=== PATIENT | male | born 1975 | race Caucasian/White ===

== ENCOUNTER 2023-02-04 11:47 | Emergency (ER) | payer OTHER ==
[2023-02-04 13:02] LABS: BASOPHILS PERCENT AUTO 0.4 % (0.0-1.0); EOSINOPHILS ABSOLUTE AUTO 0.1 K/mm3 (0.0-0.4); EOSINOPHILS PERCENT AUTO 1.7 % (0.0-6.0); HEMATOCRIT 41.9 % (42.0-52.0); HEMOGLOBIN 15.7 gm/dl (14.0-18.0); IMMATURE GRAN ABSOLUTE AUTO 0.03 K/mm3 (0.00-0.05); IMMATURE GRAN PERCENT AUTO 0.4 % (0.0-0.4); LYMPHOCYTES ABSOLUTE AUTO 1.9 K/mm3 (1.0-4.8); MEAN CORPUSCULAR HEMOGLOBIN 31.8 pg (28.0-32.0); MEAN CORPUSCULAR HGB CONC 37.5 g/dl (32.0-36.0); MEAN CORPUSCULAR VOLUME 84.8 fl (83.0-99.0); MEAN PLATELET VOLUME 10.9 fl (9.4-12.4); MONOCYTES ABSOLUTE AUTO 0.5 K/mm3 (0.0-0.8); MONOCYTES PERCENT AUTO 6.8 % (0.0-8.0); NEUTROPHILS ABSOLUTE AUTO 4.6 K/mm3 (1.8-7.7); NEUTROPHILS PERCENT AUTO 63.7 % (41.0-71.0); PLATELET COUNT,PLT 289 K/mm3 (150-400); RED BLOOD CELL COUNT 4.94 M/mm3 (4.52-5.90); WHITE BLOOD CELL COUNT,WBC 7.19 K/mm3 (3.9-11.3)
[2023-02-04 13:09] LABS: A/G RATIO 0.9 (1-2); ALBUMIN 3.7 g/dl (3.4-5.0); ALKALINE PHOSPHATASE 104 U/L (46-116); AMYLASE 21 U/L (25-115); ANION GAP 21.4 (5-15); BILIRUBIN TOTAL 1.4 mg/dL (0.2-1.0); BLOOD UREA NITROGEN,BUN 10 mg/dL (7-18); BUN/CREATININE RATIO 9.1 (14-18); CALCIUM 8.2 mg/dL (8.5-10.1); CARBON DIOXIDE,CO2 19 mEq/L (21-32); CHLORIDE,CL 95 mEq/L (98-107); CREATINE KINASE,CK 294 U/L (39-308); EST CRCL DRUG DOSING (CG) 87.47 mL/min; ESTIMATED GFR 83 mL/min (>60); GLUCOSE RANDOM 398 mg/dL (70-99); LIPASE 30 U/L (16-77); MAGNESIUM 1.3 mg/dL (1.8-2.4); POTASSIUM,K 4.4 mEq/L (3.5-5.1); SODIUM,NA 131 mEq/L (136-145)
[2023-02-04 13:24] LABS: BASE EXCESS VENOUS -2.5 (-4.0-2.0); BICARBONATE,VENOUS 21.4 meq/L (22-26); O2 SATURATION VENOUS 99; PCO2 VENOUS 36.3 mmHg (41-51); PH,VENOUS 7.39 (7.30-7.40)
[2023-02-04] MEDS ORDERED: Insulin Lispro 100 Unit/ML 3 ML KwikPen SUBCUT ONE (13:56)
[2023-02-04] MEDS ORDERED: 50% Dextrose in Water 50 ML Syringe IVPUSH PRN (13:56)
[2023-02-04] MEDS ORDERED: Sodium Chloride 0.9% 1,000 ML IV ONE (14:15)
[2023-02-04 15:01] LABS: APPEARANCE,URINE CLEAR (Clear); BILIRUBIN,URINE NEGATIVE (Negative); COLOR,URINE YELLOW (Yellow); GLUCOSE,URINE 2+ (Negative); KETONES,URINE TRACE (Negative); LEUKOCYTE ESTERASE,URINE NEGATIVE (Negative); NITRITE,URINE NEGATIVE (Negative); OCCULT BLOOD,URINE 1+ (Negative); PROTEIN,URINE 1+ (Negative); UROBILINOGEN,URINE 0.2 (0.2-1.0)
[2023-02-04 15:11] LABS: BACTERIA,URINE FEW /hpf (FEW); EPITHELIAL CELLS,URINE 0-5 /hpf (0-5); MUCUS,URINE FEW /hpf (FEW); WBC,URINE 0-5 /hpf (0-5)
== END 2023-02-04 17:03 | disposition home or self-care (01) ==
LOC: JD.ED 11:47
DX: E11.65 Type 2 diabetes mellitus with hyperglycemia (principal)
CPT/HCPCS: 36415; 71046; 80053; 81001; 82010; 82150; 82550; 82803; 82947; 83690; 83735; 85025; 96360; 99285; J1815; J7030; 99284